=== PATIENT | male | born 1945 | race Caucasian/White ===

== ENCOUNTER 2021-11-10 11:56 | Emergency (ER) | payer MEDICARE, OTHER ==
--- OUTSIDE RECORDS SUMMARY | 2021-11-10 11:58 | XMS REPORT | Continuity of Care Document ---
:1945 Author Organization [facility] t Address [address] [place] [address] Care Team Providers Name Role Phone Stanton HICKEY Primary Care Physician Unavailable Raymond Attending Clinician Unavailable Allen DUNAWAY Attending Clinician Unavailable Titus TOMOGRAPHY TECHNOLOGIST Attending Clinician ANENE Attending Clinician Unavailable Provider, Urgent Care Attending Clinician Unavailable Doctor Unassigned, Name Attending Clinician Unavailable Ige-Odunuga_J_AH Attending Clinician Unavailable Ige-Odunuga_J_AH Admitting Clinician Unavailable Payers Payer Name Policy Type Policy Number Effective Date Expiration Date [id number] (MEDICARE 00:00:00 REPLACEMENT HMO) [employer] [place] [id number] 2020 CLASSIC/VALUE 00:00:00 [facility] [id number] 2019 [place] (MEDICARE 00:00:00 REPLACEMENT/ADVANTA GE - HMO) Problems Condition Condition Condition Status Onset Resolution Last Treating Co mments Source Name Details Category Date Date Treatment Clinician Date No known No known Disease Unive rs active active ity of problems problems [facility] Allergies, Adverse Reactions, Alerts Allergy Allergy Status Severity Reaction(s) Onset Inactive Treating Comm ents Source Name Type Date Date Clinician NO KNOWN Drug Active Univers ALLERGIE Class ity of S [facility] Social History Social Habit Start Date Stop Date Quantity Comments Source Sex Assigned At [facility] Branch Exposure to Not sure [facility] SARS-CoV-2 (event) Medica l Branch Tobacco use and 2020-05-07 2020-05-07 Never used [facility] exposure 00:00:00 00:00:00 [facility] [place] Smoking Status Start Date Stop Date Source Former smoker 2020-05-07 00:00:00 2020-05-07 00:00:00 [facility] Medications Ordered Filled Start Stop Current Ordering Indication Dosage Frequency Signature Comments Components Source Medication Medication Date Date Medication? Clinician (SIG) Name Name ALBUTEROL 2019-07 Yes Inhale. Unive rs INHALE 0-13 ity of 19:20: [address] ALBUTEROL 2019-07 Yes Inhale. Unive rs INHALE 0-13 ity of 19:20: [address] ALBUTEROL 2019-07 Yes Inhale. Unive rs INHALE 0-13 ity of 19:20: [address] ALBUTEROL 2019-07 Yes Inhale. Unive rs INHALE 0-13 ity of 19:20: [address] benzonatate 2019-07 2020- No [id number] 100mg Take 1 Univers (TESSALON 0-13 10-28 capsule by Pepito) 100 00:00: 04:59 [place] capsule 00 :00 (three) Medica l times Branch daily for 14 days. benzonatate 2019-07 2020- No [id number] 100mg Take 1 Univers (TESSALON 0-13 10-28 capsule by bethanie ISAAC) 100 00:00: 04:[place] capsule 00 :00 (three) Medica l times Branch daily for 14 days. benzonatate 2019-07 2020- No [id number] 100mg Take 1 Univers (TESSALON 0-13 10-28 capsule by bethanie ISAAC) 100 00:00: 04:59 [place] capsule 00 :00 (three) Medica l times Branch daily for 14 days. benzonatate 2019-07 2020- No [id number] 100mg Take 1 Univers (TESSALON 0-13 10-28 capsule by [place]) 100 00:00: 04:59 [place] capsule 00 :00 (three) Medica l times Branch daily for 14 days. methylPREDN 2019-07 2020- No [id number] Take by [facility] ISolone 4 0-13 10-20 mouth ity of mg tablets 00:00: 04:59 SEE-INSTRU [place] 00 :00 CTIONS for Medical 6 days. Branch follow package directions methylPREDN 2019-07 2020- No [id number] Take by [facility] ISolone 4 0-13 10-20 mouth ity of mg tablets 00:00: 04:59 SEE-INSTRU [place] 00 :00 CTIONS for Medical 6 days. Branch follow package directions methylPREDN 2019- 2020- No [id number] Take by [facility] ISolone 4 0-13 10-20 mouth ity of mg tablets 00:00: 04:59 SEE-INSTRU [place] 00 :00 CTIONS for Medical 6 days. Branch follow package directions methylPREDN 2019- 2020- No [id number] Take by [facility] ISolone 4 0-13 10-20 mouth ity of mg tablets 00:00: 04:59 SEE-INSTRU [place] 00 :00 CTIONS for Medical 6 days. Branch follow package directions azithromyci 2019- 2020- No [id number] 250mg Take 1 Univers n 0-13 10-19 tablet by ity of (ZITHROMAX 00:00: 04:59 mouth [place] Z-CHRISTO) 250 00 :00 daily for Medi hallie mg tablet 5 days. Branch Take 500 mg day 1, then 250 mg days 2 to 5. azithromyci 2019-07 2020- No [id number] 250mg Take 1 Univers n 0-13 10-19 tablet by ity of (ZITHROMAX 00:00: 04:59 mouth [place] Z-CHRISTO) 250 00 :00 daily for Medi hallie mg tablet 5 days. Branch Take 500 mg day 1, then 250 mg days 2 to 5. azithromyci 2019-07 2020- No [id number] 250mg Take 1 Univers n 0-13 10-19 tablet by ity of (ZITHROMAX 00:00: 04:59 mouth [place] Z-CHRISTO) 250 00 :00 daily for Medi hallie mg tablet 5 days. Branch Take 500 mg day 1, then 250 mg days 2 to 5. azithromyci 2019- 2020- No [id number] 250mg Take 1 Univers n 0-13 10-19 tablet by ity of (ZITHROMAX 00:00: 04:59 mouth [place] Z-CHRISTO) 250 00 :00 daily for Medi hallie mg tablet 5 days. Branch Take 500 mg day 1, then 250 mg days 2 to 5. omeprazole 2020-0 Yes Univers 20 mg 8-11 ity of capsule 00:00: Medical Branch amLODIPine 2020-0 Yes Univers 5 mg tablet 8-11 ity of 00:00: Medical Branch omeprazole 2020-0 Yes Univers 20 mg 8-11 ity of capsule 00:00: [place] 00 Medical Branch amLODIPine 2020-0 Yes Univers 5 mg tablet 8-11 ity of 00:00: [place] 00 Medical Branch omeprazole 2020-0 Yes Univers 20 mg 8-11 ity of capsule 00:00: [place] Medical Branch amLODIPine 2020-0 Yes Univers 5 mg tablet 8-11 ity of 00:00: [place] Medical Branch omeprazole 2020-0 Yes Univers 20 mg 8-11 ity of capsule 00:00: [place] Medical Branch amLODIPine 2020-0 Yes Univers 5 mg tablet 8-11 ity of 00:00: [place] 00 Medical Branch losartan-hy 2020-0 Yes Univer s drochloroth 7-31 ity of iazide 00:00: [place] 50-12.5 mg 00 Medical per tablet Branch TRELEGY 2020-0 Yes Univers ELLIPTA 7-31 ity of 100-62.5-25 00:00: [place] mcg DsDv 00 Medical Branch losartan-hy 2020-0 Yes Univer s drochloroth 7-31 ity of iazide 00:00: [place] 50-12.5 mg 00 Medical per tablet Branch TRELEGY 2020-0 Yes Univers ELLIPTA 7-31 ity of 100-62.5-25 00:00: [place] mcg DsDv 00 Medical Branch losartan-hy 2020-0 Yes Univer s drochloroth 7-31 ity of iazide 00:00: [place] 50-12.5 mg 00 Medical per tablet Branch TRELEGY 2020-0 Yes Univers ELLIPTA 7-31 ity of 100-62.5-25 00:00: [place] mcg DsDv 00 Medical Branch losartan-hy 2020-0 Yes Univer s drochloroth 7-31 ity of iazide 00:00: [place] 50-12.5 mg 00 Medical per tablet Branch TRELEGY 2020-0 Yes Univers ELLIPTA 7-31 ity of 100-62.5-25 00:00: [place] mcg DsDv 00 Medical Branch Vital Signs Vital Name Observation Time Observation Value Comments Source BMI 2020-05-07 19:17:00 44.62 kg/m2 [facility] [place] [facility] Branch Oxygen saturation in 2020-05-07 19:17:00 93 /min University of Arterial blood by [facility] [place] [facility] Pulse oximetry Branch Systolic blood 2020-05-07 19:17:00 127 mm[Hg] Univer sity of pressure [facility] Diastolic blood 2020-05-07 19:17:00 78 mm[Hg] Unive rsity of pressure [facility] Heart rate 2020-05-07 19:17:00 70 /min [facility] Body temperature 2020-05-07 19:17:00 36.94 Enriqueta [facility] Respiratory rate 2020-05-07 19:17:00 22 /min [facility] Body height 2020-05-07 19:17:00 177.8 cm [facility] Body weight 2020-05-07 19:17:00 141.069 kg [facility] Procedures Procedure Date / Time Performed Performing Clinician Sourc e XR CHEST 2 VW 2020-05-07 20:32:42 Peg Qureshi [place] [facility] ASSIGNMENT OF BENEFITS 2020-05-07 20:10:22 Doctor Unassigned, No [facility] POCT GRP A STREP 2020-05-07 00:00:00 Peg Qureshi [facility] ([facility]) [facility] Encounters Start End Encounter Admission Attending Care Care Encounter Source Date/Time Date/Time Type Type Clinicians Facility Department ID 2021-07-25 2021-07-[id number] 08:31:00 08:31:00 1231 Medica l Group 2021-06-13 2021-06-13 [facility] [id number] [facility] 12:00:00 12:00:00 1119 Medica l Group 2020-10-24 2020-10-24 Outpatient Stanton DUNAWAY [facility] [id number] Univers 15:10:00 12:29:25 [facility]UREA [facility] 2020-10-03 2020-10-03 Outpatient Stanton DUNAWAY [facility] [id number] Univers 15:10:00 15:10:21 AUREA [facility] 2020-05-07 2020-05-07 [facility] [id number] Univers 15:15:00 23:59:00 Encounter Peg Gilmore [id number] bethanie [facility] [id number] [facility] [id number] [facility] 807 [place] 2020-05-07 2020-05-07 Outpatient R TITUS [facility] [id number] Univers 15:15:00 15:15:00 PEG [id number] ity [facility] 2020-05-07 2020-05-07 Urgent Provider, [facility] [id number] Univers 14:03:32 14:52:36 Care Peg Qureshi [id number] ity of [place] [id number] [facility] as Professio [phone] Nh dical nal 044 [place] Office [facility] 2020-05-07 2020-05-07 Outpatient R TITUS [facility] [id number] Univers 14:20:00 14:20:00 PEG ittiffany [facility] 2020-05-07 2020-05-07 Orders Doctor IVET [id number] Univers 00:00:00 00:00:00 Only Unassigned, MARINA [id number] ity of [place] [facility] [id number] Cassius as [id number] [facility] 009 [place] 2020-05-07 2020-05-07 Telephone Titus [facility] [id number] Univers 00:00:00 00:00:00 Peg [facility] [id number] it y of [place] [id number] [facility] as Professio [id number] Nh dicmd nal 044 [place] Office [facility] 2019-09-13 2019-09-13 Outpatient Ige-Odunuga [facility] [id number] [facility] 07:21:00 07:21:00 _J_AH [id number] Family Practic e Results Test Description Test Time Test Comments Results Result Sour e Comments Radiologic 2020-10-24 examination, 5 chest; 2 views 11:02:10 [facility] OPAL JULIO : 1945 Sex: M CL INICAL INDICATION: J44.9 Chronic obstructive pulmonary disease, unspecifiedTECHNIQUE: PA and lateral views of the chest.FINDINGS: Comparison study: noneThe lungs are clear. There are no infiltrates or effusions.The cardiac silhouette is unremarkable. The melba and mediastinum are intact.Large hiatal hernia is noted. Bones appeared unremarkable.IMPRESSI ON:Hiatal hernia, no acute abnormalities. XR CHEST 2020-04-25 HISTORY: SOB, cough. U niversity of 3 History of COPD. [facility] 20:36:18 TECHNIQUE: 2 PA and Branc h one lateral views of the chest are obtained. No priorchest study available for comparison. FINDINGS: Mild upper lobe predominant obstructive lung disease, increasedmarkings in the lower lungs likely chronic probably fibrosis. No acutepneumonia detected. No pneumothorax or pleural effusion. Cardiothoracic ratio of approximately 13.8/37.5 cm is consistent withnormal cardiac size. Moderate sized hiatal hernia noted. Incidental notemade also of multiple metallic anchors in the head of the left humerus,probably utilized for rotator cuff surgery. No compression fracturedetected in the thoracic vertebral bodies. CONCLUSIONS:1. COPD. Mild bibasilar pulmonary fibrosis. No pneumonia.2. Moderate-sized hiatal hernia.[facility], Radiant Results Inft User - 05/07/2020 3:37 PM CDTHISTORY: SOB, cough. History of COPD.TECHNIQUE: 2 PA and one lateral views of the chest are obtained. No priorchest study available for comparison.FINDINGS: Mild upper lobe predominant obstructive lung disease, increasedmarkings in the lower lungs likely chronic probably fibrosis. No acutepneumonia detected. No pneumothorax or pleural effusion.Cardiothorac ic ratio of approximately 13.8/37.5 cm is consistent withnormal cardiac size. Moderate sized hiatal hernia noted. Incidental notemade also of multiple metallic anchors in the head of the left humerus,probably utilized for rotator cuff surgery. No compression fracturedetected in the thoracic vertebral bodies.CONCLUSIONS:1. COPD. Mild bibasilar pulmonary fibrosis. No pneumonia.2. Moderate-sized hiatal hernia. POCT GRP A STREP (MOLECULAR) 2020-05-07 19:38:00 Test Item Value Reference Range Interpretation Comme nts POCT GP A STREP (test code = 55404-2) negative Negative - Negat george [facility]
[2021-11-10] MEDS ORDERED: ASPIRIN 81 MG CHEWABLE TABLET ONE (12:43)
[2021-11-10] MEDS ORDERED: METHYLPREDNISOLONE 125 MG INJ ONE (12:43)
[2021-11-10] MEDS ORDERED: ALBUTEROL 2.5 MG/3 ML NEB SOL ONE (12:44)
[2021-11-10] MEDS ORDERED: IPRATROPIUM BROM 0.5MG/2.5ML ONE (12:44)
[2021-11-10 13:19] LABS: Absolute Lymphocytes (CBC) 1.9 K/uL (0.7-4.9); Lymphocytes % 19.2 % (15.3-44.8); MPV 8.6 fL (7.6-11.3); RBC Red Blood Cell Count 5.02 M/uL (4.33-5.43)
[2021-11-10 13:36] LABS: Albumin 3.4 g/dL (3.4-5.0); Bilirubin Direct 0.1 mg/dL (0-0.2); Bilirubin Total 0.4 mg/dL (0.2-1.0); Magnesium 2.2 mg/dL (1.8-2.4); Potassium 3.8 mmol/L (3.5-5.1); Protein, Total 7.3 g/dL (6.4-8.2)
[2021-11-10 13:59] LABS: Protime INR 0.96
--- NOTE | 2021-11-10 14:16 | RAD REPORT ---
EXAM DESCRIPTION: CT - Angio Aorta For Dissection - 11/10/2021 2:03 pm CLINICAL HISTORY: Chest pain radiating to the back. chest pain COMPARISON: No comparisons TECHNIQUE: CT angiography of the aorta was performed with MIPs. All CT scans are performed using dose optimization technique as appropriate and may include automated exposure control or mA/KV adjustment according to patient size. FINDINGS: A left aortic arch is present with normal branching pattern of the great vessels.No acute aortic finding is seen such as aneurysm, penetrating ulcer or dissection. Moderate atherosclerosis a t the origin of the visceral arteries without occlusion. Cholelithiasis. No evidence of pulmonary embolism. Moderate COPD. Large hiatal hernia. Diffuse fatty liver is present. Small low-density liver lesions are likely cysts.The spleen, pancreas , adrenal glands and kidneys are within normal limits for arterial phase imaging.IVC filter. No bowel obstruction, free fluid or abscess.Normal appendix. Advanced sigmoid diverticulosis without diverticulitis. Moderate stool is present in the sigmoid colon.No pathologic enlarged lymphadenopathy identified. Moderate lumbar degenerative changes. IMPRESSION: No acute aortic finding is demonstrated. Large hiatal hernia. Moderate COPD. Cholelithiasis. Sigmoid diverticulosis coli with moderate stool retention.
--- NOTE | 2021-11-10 14:17 | RAD REPORT ---
EXAM DESCRIPTION: RAD - Chest Single View - 11/10/2021 2:10 pm CLINICAL HISTORY: CHEST PAIN Chest pain. COMPARISON: Chest Pa And Lat (2 Views) dated 10/05/2018; Chest Pa And Lat (2 Views) dated 10/26/2016 FINDINGS: Portable technique limits examination quality. The lungs are emphysematous but grossly clear. The heart is normal in size. No displaced fractures.Hi atal hernia. IMPRESSION: Moderate COPD.
--- NOTE | 2021-11-10 16:57 | ER ---
Nurse's Notes [facility] Name: Mg Costa Age: 76 yrs Sex: Male : 1945 Arrival Date: 11/10/2021 Time: 11:57 Bed 7 Private MD: Katlyn Greenfield Diagnosis: Chest pain, unspecified;COPD/ Chronic obstructive pulmonary disease with (acute) exacerbation Presentation: 11/10 12:15 Chief complaint: Patient states: Chest pain that has been ongoing for "months", Dr bianka Horn had pt on a heart monitor at home recently and they are awaiting results of that. Pt states that today while sitting in chair at home chest pain worsened, radiates from R chest across to L chest and R shoulder blade, also reports SOB, pt tachypneic in triage, hx of COPD, HR appears irregular on pulse ox. Coronavirus screen: Vaccine status: Patient reports receiving the 2nd dose of the covid vaccine. Ebola Screen: No symptoms or risks identified at this time. Initial Sepsis Screen: Does the patient meet any 2 criteria? No. Patient's initial sepsis screen is negative. Does the patient have a suspected source of infection? No. Patient's initial sepsis screen is negative. Risk Assessment: Do you want to hurt yourself or someone else? Patient reports no desire to harm self or others. Onset of symptoms was November 10, 2021. 12:15 Method Of Arrival: Wheelchair 12:15 Acuity: JAIME 2 ph Triage Assessment: 12:24 General: Appears in no apparent distress. uncomfortable, Behavior is cooperative, ph appropriate for age. Pain: Complains of pain in anterior aspect of right upper chest Pain radiates to anterior aspect of left upper chest. Neuro: Level of Consciousness is awake, alert, obeys commands, Oriented to person, place, time, situation. Cardiovascular: Reports chest pain, lightheadedness, shortness of breath. Respiratory: Airway is patent Respiratory effort is even, labored, Respiratory pattern is tachypnea. Derm: Skin is intact, is healthy with good turgor, Skin is pink, warm \\T\\ dry. Historical: - Allergies: 12:23 No Known Allergies; ph - Immunization history:: Adult Immunizations up to date. - Social history:: Smoking status: Patient denies any tobacco usage or history of. Screenin:40 Abuse screen: Denies threats or abuse. Nutritional screening: No deficits noted. ap3 Tuberculosis screening: No symptoms or risk factors identified. 13:40 Fall Risk No fall in past 12 months (0 pts). Secondary diagnosis (15 points) IV access ap3 (20 points). Ambulatory Aid- None/Bed Rest/Nurse Assist (0 pts). Gait- Weak (10 pts.). Mental Status- Oriented to own ability (0 pts). Total Howard Fall Scale indicates Low Risk Score (25-44 pts). Fall prevention measures have been instituted. Side Rails Up X 2 Placed close to Nursing Station Frequent Obs/Assesments occuring Family Present and informed to notify staff if they need to leave bedside As available Patient and Family Educated on Fall Prevention Program and strategies. Assessment: 13:40 Pain: Pain began gradually, 2-3 days ago. ap3 14:23 Reassessment: Patient and/or family updated on plan of care and expected duration. Pain ap3 level reassessed. Patient is alert, oriented x 3, equal unlabored respirations, skin warm/dry/pink. 17:02 Reassessment: patient discharged, awaiting transportation for departure. ap3 Vital Signs: 12:15 BP 140 / 63; Pulse 38; Resp 26; Temp 98.3(TE); Pulse Ox 93% on R/A; Weight 142.88 kg; ph Height 5 ft. 10 in. (177.80 cm); 12:28 BP 165 / 94; Pulse 76; Resp 28; Temp 98.6(O); Pulse Ox 94% on R/A; Weight 145.15 kg mb7 (R); Height 5 ft. 10 in. (177.80 cm) (R); 14:21 BP 122 / 71 LA (auto/lg); Pulse 73; Resp 19; Pulse Ox 93% on R/A; ap3 15:21 BP 123 / 68; Pulse 61; Pulse Ox 94% on R/A; ap3 15:53 BP 131 / 69; Pulse 61; Pulse Ox 94% on R/A; ap3 16:33 BP 113 / 63; Pulse 64; Resp 20; Pulse Ox 98% on 2 lpm NC; Pain 0/10; jh6 12:28 Body Mass Index 45.91 (145.15 kg, 177.80 cm) mb7 12:15 HR appears irregular ph ED Course: 11:57 Patient arrived in ED. ds1 11:57 Katlyn Greenfield MD is Private Physician. ds1 12:15 [facility] Henri[facility]. cp 12:15 Gorge Trujillo DO is Attending Physician. cp 12:23 Triage completed. ph 12:24 Arm band placed on Patient placed in an exam room, on a stretcher. ph 12:28 Inserted saline lock: 20 gauge in right antecubital area, using aseptic technique. ap3 Blood collected. 12:29 Placed in gown. Bed in low position. Call light in reach. Side rails up X 1. Door mb7 closed. Noise minimized. Warm blanket given. 13:40 alarm security or surveillance monitor on. Pulse ox on. NIBP on. ap3 13:40 Patient maintains SpO2 saturation greater than 95% on room air. ap3 14:05 CT Aorta for Dissection In Process Unspecified. EDMS 14:11 XRAY Chest (1 view) In Process Unspecified. EDMS 15:50 Repeat lab(s) drawn. by me, sent to lab. ap3 16:55 Praveen Ford MD is Referral Physician. cp 17:01 No provider procedures requiring assistance completed. IV discontinued, intact, ap3 bleeding controlled, No redness/swelling at site. Pressure dressing applied. Administered Medications: 13:08 Drug: Albuterol - atroVENT (ipratropium) (3:1) (2.5 mg - 0.5 mg) 3 ml Route: Nebulizer; ap3 14:20 Follow up: Response: No adverse reaction ap3 15:23 Follow up: Response: No adverse reaction ap3 13:09 Drug: Aspirin Chewable Tablet 324 mg Route: PO; ap3 15:23 Follow up: Response: No adverse reaction ap3 14:20 Not Given (Patient Refused; pt states he takes steroids at homee): SOLU-Medrol ap3 (methylPrednisoLONE) 125 mg IVP once 15:21 Drug: SOLU-Medrol (methylPrednisoLONE) 125 mg Route: IVP; Site: right antecubital; ap3 17:02 Follow up: Response: No adverse reaction ap3 Outcome: 16:56 Discharge ordered by . cp 17:01 Discharged to home ambulatory, with family. ap3 17:01 Condition: good 17:01 Discharge instructions given to patient, family, Instructed on discharge instructions, follow up and referral plans. medication usage, Demonstrated understanding of instructions, follow-up care, medications, Prescriptions given X 1. 17:13 Patient left the ED. ap3 Signatures: Dispatcher [employer] EDMI Jaz Calderon ds1 Keren Roblero RN RN Gurpreet Kitchen PA PA cp Prokisch, Amanda, RN RN ap3 Becky Alvarez RN RN 6 Jumana Sarah 7
--- NOTE | 2021-11-10 16:57 | EDPHYS ---
Physician Documentation [facility] Name: Mg Costa Age: 76 yrs Sex: Male : 1945 Arrival Date: 11/10/2021 Time: 11:57 Bed 7 Private MD: Katlyn Greenfield ED Physician Gorge Trujillo HPI: 11/10 12:45 This 76 yrs old Male presents to ER via Wheelchair with complaints of Chest Pain. cp 12:45 The patient or guardian reports chest pain that is located primarily in the diaphragm. cp The pain radiates to back. 12:45 Onset: 2-3 weeks ago. The chest pain is described as sharp. Duration: The patient or cp guardian reports multiple episodes, that are intermittent, with no pattern. 12:45 Patient reports he has seen DR Horn in the past and wore a heart monitor. Has cp appointment tomorrow to discuss the results, but started having chest pain today while sitting at home. Historical: - Allergies: 12:23 No Known Allergies; ph - Immunization history:: Adult Immunizations up to date. - Social history:: Smoking status: Patient denies any tobacco usage or history of. ROS: 12:50 Constitutional: Negative for body aches, chills, fever, poor PO intake. cp 12:50 Eyes: Negative for injury, pain, redness, and discharge. cp 12:50 ENT: Negative for drainage from ear(s), ear pain, sore throat, difficulty swallowing, difficulty handling secretions. 12:50 Cardiovascular: Positive for chest pain, Negative for edema, palpitations. 12:50 Respiratory: Positive for shortness of breath, Negative for cough, wheezing. 12:50 Abdomen/GI: Negative for abdominal pain, nausea, vomiting, and diarrhea. 12:50 Back: Negative for pain at rest, pain with movement. 12:50 Neuro: Negative for altered mental status, dizziness, headache, weakness. 12:50 All other systems are negative. Exam: 12:44 ECG was reviewed by the Attending Physician. cp 12:47 ECG was reviewed by the Attending Physician. cp 12:55 Constitutional: The patient appears in no acute distress, alert, awake, cp non-diaphoretic, non-toxic, well developed, well nourished, obese. 12:55 Head/Face: Normocephalic, atraumatic. cp 12:55 Eyes: Periorbital structures: appear normal, Conjunctiva: normal, no exudate, no injection, Sclera: no appreciated abnormality, Lids and lashes: appear normal, bilaterally. 12:55 ENT: External ear(s): are unremarkable, Nose: is normal, Mouth: Lips: moist, Oral mucosa: moist, Posterior pharynx: Airway: no evidence of obstruction, patent. 12:55 Neck: ROM/movement: is normal, is supple, without pain, no range of motions limitations. 12:55 Chest/axilla: Inspection: normal, Palpation: is normal, no crepitus, no tenderness. 12:55 Cardiovascular: Rate: normal, Rhythm: regular, Edema: is not appreciated, JVD: is not appreciated. 12:55 Respiratory: the patient does not display signs of respiratory distress, Respirations: labored breathing, that is mild, intercostal retractions, are absent, shallow respirations, are not present, Breath sounds: bronchial sounds, that are mild, are heard diffusely, stridor, is not appreciated, wheezing: that is mild, is heard diffusely. 12:55 Abdomen/GI: Inspection: obese Bowel sounds: active, all quadrants, Palpation: abdomen is soft and non-tender, in all quadrants. 12:55 Back: pain, is absent, ROM is normal. 12:55 Skin: no rash present. 12:55 Neuro: Orientation: to person, place \T\ time. Mentation: is normal. Vital Signs: 12:15 BP 140 / 63; Pulse 38; Resp 26; Temp 98.3(TE); Pulse Ox 93% on R/A; Weight 142.88 kg; ph Height 5 ft. 10 in. (177.80 cm); 12:28 BP 165 / 94; Pulse 76; Resp 28; Temp 98.6(O); Pulse Ox 94% on R/A; Weight 145.15 kg mb7 (R); Height 5 ft. 10 in. (177.80 cm) (R); 14:21 BP 122 / 71 LA (auto/lg); Pulse 73; Resp 19; Pulse Ox 93% on R/A; ap3 15:21 BP 123 / 68; Pulse 61; Pulse Ox 94% on R/A; ap3 15:53 BP 131 / 69; Pulse 61; Pulse Ox 94% on R/A; ap3 16:33 BP 113 / 63; Pulse 64; Resp 20; Pulse Ox 98% on 2 lpm NC; Pain 0/10; jh6 12:28 Body Mass Index 45.91 (145.15 kg, 177.80 cm) mb7 12:15 HR appears irregular ph MDM: 12:33 Patient medically screened. cp 13:00 Differential diagnosis: acute myocardial infarction, acute pericarditis, chest wall cp pain, cholecystitis, Cholelithiasis costochondritis, pancreatitis, pericarditis, pleurisy, pneumonia, pneumothorax, pulmonary embolus, stable angina, thoracic aortic disection, unstable angina. 16:55 Data reviewed: vital signs, nurses notes, lab test result(s), EKG, radiologic studies, cp CT scan, plain films. 16:55 The patient was given aspirin in the Emergency Department. Test interpretation: by ED cp physician or midlevel provider: ECG, plain radiologic studies. Counseling: I had a detailed discussion with the patient and/or guardian regarding: the historical points, exam findings, and any diagnostic results supporting the discharge/admit diagnosis, lab results, radiology results, the need for outpatient follow up, a traveling inventory associate, a program scheduler, to return to the emergency department if symptoms worsen or persist or if there are any questions or concerns that arise at home. Response to treatment: the patient's symptoms have markedly improved after treatment, and as a result, I will discharge patient. Special discussion: Based on the patient's history, exam, and Dx evaluation, there is no indication for emergent intervention or inpatient Tx. It is understood by the patient/guardian that if the Sx's persist or worsen they need to return immediately for re-evaluation. 11/10 12:35 Order name: Basic Metabolic Panel; Complete Time: 13:40 cp 11/10 13:40 Interpretation: Normal except: CL 108; GLUC 171; BUN 21; GFR 62. cp 11/10 12:35 Order name: CBC with Diff; Complete Time: 13:40 cp 11/10 12:35 Order name: LFT's; Complete Time: 13:40 cp 11/10 14:24 Interpretation: Normal except: GLOB 3.9; A/G 0.9. cp 11/10 12:35 Order name: Magnesium; Complete Time: 13:40 cp 11/10 12:35 Order name: NT PRO-BNP; Complete Time: 13:40 cp 11/10 12:35 Order name: PT-INR; Complete Time: 14:23 cp 11/10 14:23 Interpretation: Reviewed. cp 11/10 12:35 Order name: Troponin HS; Complete Time: 13:40 cp 11/10 13:40 Interpretation: Troponin HS 6.0; Reviewed. cp 11/10 12:35 Order name: XRAY Chest (1 view); Complete Time: 14:23 cp 11/10 14:23 Interpretation: Report reviewed. cp 11/10 13:41 Order name: CT Aorta for Dissection; Complete Time: 14:23 cp 11/10 15:44 Order name: Troponin High Sensitivity; Complete Time: 16:41 cp 11/10 12:35 Order name: EKG; Complete Time: 12:35 cp 11/10 12:35 Order name: Cardiac monitoring; Complete Time: 13:08 cp 11/10 12:35 Order name: EKG - Nurse/Tech; Complete Time: 13:08 cp 11/10 12:35 Order name: IV Saline Lock; Complete Time: 13:09 cp 11/10 12:35 Order name: Labs collected and sent; Complete Time: 13:09 cp 11/10 12:35 Order name: O2 Per Protocol; Complete Time: 12:36 cp 11/10 12:35 Order name: O2 Sat Monitoring; Complete Time: 12:36 cp EC:44 Rate is 68 beats/min. Rhythm is regular. MA interval is prolonged at 202 msec. QRS cp interval is normal. QT interval is normal. T waves are Inverted in lead III. Interpreted by me. Reviewed by me. 12:47 Rate is 70 beats/min. Rhythm is regular. MA interval is prolonged at 206 msec. QRS cp interval is normal. QT interval is normal. Interpreted by me. Reviewed by me. Administered Medications: 13:08 Drug: Albuterol - atroVENT (ipratropium) (3:1) (2.5 mg - 0.5 mg) 3 ml Route: Nebulizer; ap3 14:20 Follow up: Response: No adverse reaction ap3 15:23 Follow up: Response: No adverse reaction ap3 13:09 Drug: Aspirin Chewable Tablet 324 mg Route: PO; ap3 15:23 Follow up: Response: No adverse reaction ap3 14:20 Not Given (Patient Refused; pt states he takes steroids at homee): SOLU-Medrol ap3 (methylPrednisoLONE) 125 mg IVP once 15:21 Drug: SOLU-Medrol (methylPrednisoLONE) 125 mg Route: IVP; Site: right antecubital; ap3 17:02 Follow up: Response: No adverse reaction ap3 Disposition: 21:34 Co-signature as Attending Physician, Gorge Trujillo DO I was immediately available on-site ms3 in the Emergency Department for consultation in the care of the patient.. Disposition Summary: 11/10/21 16:56 Discharge Ordered Location: Home cp Problem: new cp Symptoms: have improved cp Condition: Stable cp Diagnosis - Chest pain, unspecified cp - COPD/ Chronic obstructive pulmonary disease with (acute) exacerbation cp Followup: cp - With: Private Physician - When: Tomorrow - Reason: chest pain Followup: cp - With: Praveen Ford MD - When: 2 - 3 days - Reason: COPD Discharge Instructions: - Discharge Summary Sheet cp - Nonspecific Chest Pain, Adult cp - Chronic Obstructive Pulmonary Disease Exacerbation cp - Aspirin and Your Heart cp Forms: - Medication Reconciliation Form cp - Thank You Letter cp - Antibiotic Education cp - Prescription Opioid Use cp Prescriptions: - Prednisone 20 mg Oral Tablet - take 3 tablets by ORAL route once daily for 5 days; 15 tablet; Refills: 0, cp Product Selection Permitted Signatures: Dispatcher [employer] Keren Yates, RN RN ph Gurpreet Henriquez PA PA Ara Talamantes RN RN ap3 Gorge Trujillo DO DO ms3
[2021-11-10 20:24] VITALS: TEMP 98.6
[2021-11-10 20:30] VITALS: BP 113/63; O2SAT 98
--- NOTE | 2021-11-12 08:12 | EKG ---
Test Date: 2021-11-10 Test Time: 12:44:43 Auto Body Painter: ALP MEASUREMENT RESULTS: Intervals: Rate: 68 WV: 202 QRSD: 96 QT: 388 QTc: 412 [place]: P: 38 WV: 202 QRS: -25 T: 34 INTERPRETIVE STATEMENTS: Sinus rhythm with frequent premature ventricular complexes Otherwise normal ECG No previous ECG available for comparison Electronically Signed On 11-12-21 08:07:19 CDT by Jacob العراقي
--- NOTE | 2021-11-13 07:58 | EKG ---
Test Date: 2021-11-10 Test Time: 12:45:11 Client Support Manager: ALP MEASUREMENT RESULTS: Intervals: Rate: 70 [place]: 206 QRSD: 94 QT: 362 QTc: 390 [place]: P: 55 [place]: 206 QRS: -32 T: 33 INTERPRETIVE STATEMENTS: Sinus rhythm with frequent premature ventricular complexes Left axis deviation Abnormal ECG Compared to ECG 11/10/2021 12:44:43 Left-axis deviation now present Electronically Signed On 11-13-21 07:56:47 CDT by Jacob العراقي
== END 2021-11-10 17:13 | disposition home or self-care (01) ==
LOC: ER 11:56
DX: J44.1 Chronic obstructive pulmonary disease with (acute) exacerbation (principal)
CPT/HCPCS: 93005; 85025; 80048; 36415; 83735; 85610; 80076; 84484 ×2; 83880; 71275; 74175; 71045; 94640; 96374; 99285; Q9967; J2930